=== PATIENT | female | born 1995 | race Caucasian/White ===

== ENCOUNTER 2017-02-10 19:55 | Emergency (ER) | payer SELFPAY ==
[~2017-02-10] VITALS: Ht 165.1 cm; Wt 66.0 kg
[~2017-02-10 19:55] MED LIST: BUTA1CAP57 PO; FERR325T20 PO; IBUP800T PO; INDO50CA PO; OXYC-302 PO; PREN1TAB27 PO; SENN-25 PO
[2017-02-10 20:22] LABS: HEMOGLOBIN 12.5 g/dL (11.7-16.4)
[2017-02-10 20:37] LABS: BLOOD UREA NITROGEN 5 mg/dL (7-18)
[2017-02-10 20:56] LABS: ASPARTATE AMINO TRANSFERASE 17 U/L (15-37)
[2017-02-10 23:51] VITALS: BP 99/55
== END 2017-02-10 23:53 | disposition home or self-care (01) ==
LOC: ED 21:32
DX: O20.0 Threatened abortion (principal)
CPT/HCPCS: 36415; 76801; 80053; 81003; 84702; 85025; 86901

== ENCOUNTER 2017-04-24 10:14 | Emergency (ER) | payer MEDICAID ==
[~2017-04-24] VITALS: Ht 165.1 cm; Wt 68.0 kg
[2017-04-24 10:37] VITALS: BP 112/65
== END 2017-04-24 11:07 | disposition home or self-care (01) ==
LOC: ED 11:00
DX: O9A.212 Injury, poisoning and certain other consequences of external causes complicating pregnancy, second trimester (principal); Z3A.23 23 weeks gestation of pregnancy; S80.02XA Contusion of left knee, initial encounter; V43.02XA Car driver injured in collision with other type car in nontraffic accident, initial encounter; Y93.89 Activity, other specified; Y92.89 Other specified places as the place of occurrence of the external cause; Y99.8 Other external cause status
CPT/HCPCS: 99282; 99283

== ENCOUNTER 2017-04-24 11:14 | Outpatient (CLI) | payer MEDICAID ==
[~2017-04-24] VITALS: Ht 166.4 cm; Wt 68.1 kg
[2017-04-24 11:34] VITALS: BP 91/51
[2017-04-24 13:07] LABS: HIV 1&2 ANTIBODY SCREEN Nonreactive (Nonreactive); HIV-1 p24 ANTIGEN Nonreactive (Nonreactive)
== END 2017-04-24 12:20 | disposition home or self-care (01) ==
LOC: LDOP 11:14
PROVIDERS: ATTEND Obstetrics & Gynecology
DX: O26.892 Other specified pregnancy related conditions, second trimester (principal); O9A.212 Injury, poisoning and certain other consequences of external causes complicating pregnancy, second trimester; R10.9 Unspecified abdominal pain; Z3A.23 23 weeks gestation of pregnancy
CPT/HCPCS: 36415; 59025; 85025; 86592; 86703; 86762; 86850; 86900; 87340; 87899; 99211; G0435; G0463

== ENCOUNTER 2017-04-29 21:10 | Outpatient (CLI) | payer MEDICAID | END 2017-04-29 22:10 | disposition home or self-care (01) | LOC: LDOP 21:10 | PROVIDERS: ATTEND Obstetrics & Gynecology | DX: O26.892 Other specified pregnancy related conditions, second trimester (principal); M54.2 Cervicalgia; M54.9 Dorsalgia, unspecified; Z3A.26 26 weeks gestation of pregnancy | CPT/HCPCS: 59025; 99211; G0463 ==

== ENCOUNTER 2017-04-29 22:18 | Emergency (ER) | payer MEDICAID ==
[~2017-04-29] VITALS: Ht 175.3 cm; Wt 69.2 kg
[2017-04-29 22:23] VITALS: BP 104/55
[2017-04-29] MEDS ORDERED: ONDANSETRON ODT 4 MG ONE (23:19)
[2017-04-29] MEDS ORDERED: METHOCARBAMOL 750 MG TABLET ONE (23:19)
[2017-04-29] MEDS ORDERED: ACETAMINOPHEN 650 MG/20.3 ML UDC ONE (23:19)
[2017-04-29] MEDS ORDERED: ONDANSETRON ODT 4 MG PO ONE (23:30)
[2017-04-29] MEDS ORDERED: METHOCARBAMOL 750 MG TABLET PO ONE (23:30)
[2017-04-29] MEDS ORDERED: ACETAMINOPHEN 650 MG/20.3 ML UDC PO ONE (23:30)
== END 2017-04-29 23:53 | disposition home or self-care (01) ==
LOC: ED 23:47
DX: O9A.212 Injury, poisoning and certain other consequences of external causes complicating pregnancy, second trimester (principal); S16.1XXA Strain of muscle, fascia and tendon at neck level, initial encounter; Z3A.24 24 weeks gestation of pregnancy; V49.9XXA Car occupant (driver) (passenger) injured in unspecified traffic accident, initial encounter; Y93.89 Activity, other specified; Y92.89 Other specified places as the place of occurrence of the external cause; Y99.8 Other external cause status
CPT/HCPCS: 99284; Q0162

== ENCOUNTER → 2017-06-05 | Outpatient (CLI) | payer MEDICAID ==
[~2017-06-05] VITALS: Ht 166.4 cm; Wt 73.2 kg
[~2017-06-05] MED LIST changes: +BETAMETHASONE 6 MG/ML, 5ML IM ONE; +BETAMETHASONE 6 MG/ML, 5ML IM SCH
[2017-06-05 09:58] VITALS: BP 108/52
== END | disposition home or self-care (01) ==
LOC: LDOP 09:11
PROVIDERS: ATTEND Obstetrics & Gynecology
DX: Z23 Encounter for immunization (principal); Z3A.29 29 weeks gestation of pregnancy
CPT/HCPCS: 59025; 96372; 99211; J0702; G0463

== ENCOUNTER 2018-09-04 21:00 | Emergency (ER) | payer MEDICAID ==
[~2018-09-04] VITALS: Ht 165.1 cm; Wt 74.5 kg
[~2018-09-04 21:00] MED LIST changes: -BETAMETHASONE 6 MG/ML, 5ML IM ONE; -BETAMETHASONE 6 MG/ML, 5ML IM SCH; +FERR325T18 PO; -FERR325T20 PO; +IBUP-1223 PO; -IBUP800T PO; -INDO50CA PO; +INDO50CA5 PO
[2018-09-04 21:20] VITALS: BP 116/70
== END 2018-09-04 22:38 | disposition home or self-care (01) ==
LOC: ED 22:32
DX: S80.01XA Contusion of right knee, initial encounter (principal); W01.0XXA Fall on same level from slipping, tripping and stumbling without subsequent striking against object, initial encounter; Y93.89 Activity, other specified; Y99.8 Other external cause status; Y92.410 Unspecified street and highway as the place of occurrence of the external cause
CPT/HCPCS: 99284

== ENCOUNTER 2018-10-18 10:37 | Emergency (ER) | payer MEDICAID ==
[~2018-10-18] VITALS: Ht 165.1 cm; Wt 70.0 kg
[2018-10-18 10:48] VITALS: BP 99/60
[2018-10-18] MEDS ORDERED: ONDANSETRON ODT 4 MG ONE (11:32)
[2018-10-18] MEDS ORDERED: SODIUM CHLORIDE FLUSH 10ML SYR IVF ONE (12:00)
[2018-10-18] MEDS ORDERED: SODIUM CHLORIDE 0.9% 1,000ML IVBOLUS ONE (12:00)
[2018-10-18] MEDS ORDERED: ONDANSETRON ODT 4 MG PO ONE (12:00)
== END 2018-10-18 12:35 | disposition home or self-care (01) ==
LOC: ED 11:33
DX: R11.2 Nausea with vomiting, unspecified (principal); E86.0 Dehydration
CPT/HCPCS: 96360; 99283; J7030; Q0162

== ENCOUNTER 2019-01-05 10:03 | Emergency (ER) | payer MEDICAID ==
[~2019-01-05] VITALS: Ht 165.1 cm; Wt 70.9 kg
[2019-01-05 10:41] LABS: BASOPHILS # (AUTO) 0.02 x10^3/uL (0-0.1); BASOPHILS % (AUTO) 0 % (0-1); EOSINOPHILS # (AUTO) 0.05 x10^3/uL (0-0.4); EOSINOPHILS % (AUTO) 1 % (1-7); LYMPHOCYTES # (AUTO) 1.59 x10^3/uL (1-3.4); LYMPHOCYTES % (AUTO) 24 % (22-44); MD NO; MEAN CORPUSCULAR HEMOGLOBIN 31.3 pg (27.0-34.8); MEAN CORPUSCULAR HGB CONC 33.7 g/dL (32.4-35.8); MEAN CORPUSCULAR VOLUME 92.8 fL (80-100); MEAN PLATELET VOLUME 8.3 fL (7.4-10.4); MONOCYTES # (AUTO) 0.43 x10^3/uL (0.2-0.8); MONOCYTES % (AUTO) 7 % (2-9); NEUTROPHILS # (AUTO) 4.46 x10^3/uL (1.8-6.8); NEUTROPHILS % (AUTO) 68 % (42-75); PLATELET COUNT 328 x10^3/uL (130-400); RED BLOOD COUNT 4.51 x10^6/uL (3.82-5.3); RED CELL DISTRIBUTION WIDTH 13.3 % (9.6-15.2)
--- NOTE | 2019-01-05 10:46 | NUR ---
PT TO ROOM AT THIS TIME
[2019-01-05 10:52] LABS: ALBUMIN 3.6 g/dL (3.4-5.0); ANION GAP 5 mmol/L (5-15); CALCIUM 8.5 mg/dL (8.5-10.1); CHLORIDE 109 mmol/L (98-107); CREATININE 0.69 mg/dL (0.55-1.02)
[2019-01-05 11:04] LABS: MICROSCOPIC AUTO
[2019-01-05 11:09] LABS: CULTURE INDICATED? YES
[2019-01-05 11:44] VITALS: BP 115/89
== END 2019-01-05 12:23 | disposition home or self-care (01) ==
LOC: ED 12:06
DX: N30.90 Cystitis, unspecified without hematuria (principal); Z90.49 Acquired absence of other specified parts of digestive tract
CPT/HCPCS: 36415; 80048; 81001; 81025; 82040; 85025; 87086; 99283

== ENCOUNTER 2019-04-06 14:34 | Emergency (ER) | payer MEDICAID ==
[~2019-04-06] VITALS: Ht 165.1 cm; Wt 67.9 kg
--- NOTE | 2019-04-06 15:10 | NUR ---
ER PA AT BS NOW. PT CALM, FRIEND AT BS.
[2019-04-06 16:00] LABS: BASOPHILS # (AUTO) 0.04 x10^3/uL (0-0.1); BASOPHILS % (AUTO) 1 % (0-1); EOSINOPHILS # (AUTO) 0.12 x10^3/uL (0-0.4); EOSINOPHILS % (AUTO) 2 % (1-7); LYMPHOCYTES # (AUTO) 1.62 x10^3/uL (1-3.4); LYMPHOCYTES % (AUTO) 24 % (22-44); MD NO; MEAN CORPUSCULAR HEMOGLOBIN 30.3 pg (27.0-34.8); MEAN CORPUSCULAR HGB CONC 32.5 g/dL (32.4-35.8); MEAN CORPUSCULAR VOLUME 93.3 fL (80-100); MEAN PLATELET VOLUME 8.5 fL (7.4-10.4); MONOCYTES # (AUTO) 0.53 x10^3/uL (0.2-0.8); MONOCYTES % (AUTO) 8 % (2-9); NEUTROPHILS # (AUTO) 4.42 x10^3/uL (1.8-6.8); NEUTROPHILS % (AUTO) 66 % (42-75); PLATELET COUNT 284 x10^3/uL (130-400); RED BLOOD COUNT 4.45 x10^6/uL (3.82-5.3); RED CELL DISTRIBUTION WIDTH 12.9 % (9.6-15.2)
--- NOTE | 2019-04-06 16:09 | NUR ---
STRAIGHT CATH DONE AND URINE SENT TO LAB. PT TOLERATED WELL. PT UNDERSTANDS POC.
[2019-04-06 16:14] LABS: MICROSCOPIC NOT IND
[2019-04-06 16:17] LABS: CULTURE INDICATED? NO
[2019-04-06 16:49] VITALS: BP 132/79
--- NOTE | 2019-04-06 16:49 | NUR ---
D/C INSTRUCTIONS & F/U APPT RV'WD WITH PT, SHE VERBALIZES UNDERSTANDING. PT TO COME BACK TO ER IN 48H FOR REPEAT HCG. PT AMBULATED OUT OF ED WITH FRIEND WITHOUT DIFFICULTY.
== END 2019-04-06 16:52 | disposition home or self-care (01) ==
LOC: ED 15:32
DX: O20.0 Threatened abortion (principal); Z3A.08 8 weeks gestation of pregnancy; Z90.89 Acquired absence of other organs
CPT/HCPCS: 36415; 76801; 81003; 84702; 85025; 86901; 99284

== ENCOUNTER 2019-04-10 15:55 | Emergency (ER) | payer MEDICAID ==
[~2019-04-10] VITALS: Ht 165.1 cm; Wt 68.4 kg
[2019-04-10 15:57] VITALS: BP 109/74
== END 2019-04-10 17:11 | disposition home or self-care (01) ==
LOC: ED 17:00
DX: O26.891 Other specified pregnancy related conditions, first trimester (principal); S93.491A Sprain of other ligament of right ankle, initial encounter; W01.0XXA Fall on same level from slipping, tripping and stumbling without subsequent striking against object, initial encounter; Y93.89 Activity, other specified; Y92.89 Other specified places as the place of occurrence of the external cause; Y99.8 Other external cause status
CPT/HCPCS: 29515; 99283

== ENCOUNTER 2019-05-31 20:49 | Emergency (ER) | payer MEDICAID ==
[~2019-05-31] VITALS: Ht 165.1 cm; Wt 66.9 kg
[2019-05-31 20:54] VITALS: BP 106/61
== END 2019-05-31 22:32 ==
LOC: ED 22:26
DX: O20.0 Threatened abortion (principal); Z3A.13 13 weeks gestation of pregnancy; Z90.89 Acquired absence of other organs
CPT/HCPCS: 36415; 76801; 80048; 81003; 82040; 84702; 85025; 86850; 86900; 99284

== ENCOUNTER 2019-12-26 17:44 | Emergency (ER) | payer MEDICAID ==
[~2019-12-26] VITALS: Ht 165.1 cm; Wt 75.0 kg
[~2019-12-26 17:44] MED LIST changes: +INDO50CA15 PO; -INDO50CA5 PO
--- NOTE | 2019-12-26 18:33 | NUR ---
PT PRESENTS TO ED WITH VB X3 MONTHS AFTER HAVING CONTROL NEXAPLON IMPLANT PLACED. NOW VB INCREASED WITH CLOTS EVIDENT AND 2 PADS/HR PER PT. PT DENIES PAIN AT THIS TIME. NO URINARY SYMTOMS.
[2019-12-26] MEDS ORDERED: ETON68IM3 IMPLANT (18:36)
--- NOTE | 2019-12-26 18:39 | NUR ---
pt ambulates well to bathroom independently for UA.
--- NOTE | 2019-12-26 19:16 | NUR ---
PT LAYING BACK, USING CELL PHONE. NAD NOTED. AWAITING US.
[2019-12-26 19:27] LABS: BASOPHILS # (AUTO) 0.02 x10^3/uL (0-0.1); BASOPHILS % (AUTO) 0 % (0-1); EOSINOPHILS # (AUTO) 0.08 x10^3/uL (0-0.4); EOSINOPHILS % (AUTO) 2 % (1-7); LYMPHOCYTES # (AUTO) 1.81 x10^3/uL (1-3.4); LYMPHOCYTES % (AUTO) 35 % (22-44); MD NO; MEAN CORPUSCULAR HEMOGLOBIN 31.6 pg (27.0-34.8); MEAN CORPUSCULAR HGB CONC 33.8 g/dL (32.4-35.8); MEAN CORPUSCULAR VOLUME 93.5 fL (80-100); MEAN PLATELET VOLUME 8.5 fL (7.4-10.4); MONOCYTES # (AUTO) 0.47 x10^3/uL (0.2-0.8); MONOCYTES % (AUTO) 9 % (2-9); NEUTROPHILS # (AUTO) 2.86 x10^3/uL (1.8-6.8); NEUTROPHILS % (AUTO) 55 % (42-75); PLATELET COUNT 318 x10^3/uL (130-400); RED BLOOD COUNT 4.62 x10^6/uL (3.82-5.3); RED CELL DISTRIBUTION WIDTH 13.9 % (9.6-15.2)
[2019-12-26 19:34] LABS: ALBUMIN 4.1 g/dL (3.4-5.0); ANION GAP 5 mmol/L (5-15); CALCIUM 8.4 mg/dL (8.5-10.1); CHLORIDE 108 mmol/L (98-107); CREATININE 0.84 mg/dL (0.55-1.02)
--- NOTE | 2019-12-26 20:12 | NUR ---
PT UP FOR RECHECK. NAD NOTED AT THIS TIME.
[2019-12-26 20:42] VITALS: BP 123/66
== END 2019-12-26 20:44 | disposition home or self-care (01) ==
LOC: ED 20:31
DX: N92.0 Excessive and frequent menstruation with regular cycle (principal); N92.1 Excessive and frequent menstruation with irregular cycle
CPT/HCPCS: 36415; 76830; 80048; 82040; 84703; 85025; 99284

== ENCOUNTER 2020-08-25 22:45 | Emergency (ER) | payer MEDICAID ==
[~2020-08-25] VITALS: Ht 167.6 cm; Wt 72.0 kg
[~2020-08-25 22:45] MED LIST changes: +ETON68IM3 IMPLANT
[2020-08-25 22:49] VITALS: BP 107/78
--- NOTE | 2020-08-25 22:49 | NUR ---
NIL X1
--- NOTE | 2020-08-26 00:02 | NUR ---
PA CALLED FOR PT. PT NOT IN LOBBY AT THIS TIME.
--- NOTE | 2020-08-26 00:22 | NUR ---
CALLED FOR PT. PT NOT IN LOBBY.
--- NOTE | 2020-08-26 01:46 | NUR ---
PT APPROACHED STAFF MEMBER INQUIRING HOW LONG UNTIL SHE WOULD BE ROOMED. PRIMARY CARE PEDIATRICIAN EXPLAINED THEY HAD ATTEMPTED TO CALL HER BACK MX TIMES. PT STATED "OH I DIDN'T HEAR YOU, I WAS IN THE FAR BACK". PT IMMEDIATELY ROOMED, ERMJaime HOLLINS NOTIFIED.
--- NOTE | 2020-08-26 01:50 | NUR ---
DR OHLLINS AT BEDSIDE FOR ASSESSMENT
== END 2020-08-26 00:56 | disposition home or self-care (01) ==
LOC: ED 08-26 00:50
DX: S80.02XA Contusion of left knee, initial encounter (principal); X58.XXXA Exposure to other specified factors, initial encounter; Y93.89 Activity, other specified; Y92.89 Other specified places as the place of occurrence of the external cause; Y99.8 Other external cause status
CPT/HCPCS: 29505; 99283

== ENCOUNTER 2020-10-12 20:44 | Emergency (ER) | payer MEDICAID ==
[~2020-10-12] VITALS: Ht 165.1 cm; Wt 71.9 kg
[2020-10-12 21:08] VITALS: BP 104/43
--- NOTE | 2020-10-12 23:42 | NUR ---
[employer] DRIVER: CALLED FOR PT. PT NOT IN LOBBY AT THIS TIME.
--- NOTE | 2020-10-12 23:57 | NUR ---
environmental test technician: pt from lobby to room 1
--- NOTE | 2020-10-12 23:59 | NUR ---
Seo Manager RN: Pt not in lobby when RN attempted to call for pt.
--- NOTE | 2020-10-13 00:30 | NUR ---
pt not in lobby
== END 2020-10-13 00:35 | disposition left against medical advice (07) ==
LOC: ED 10-13 00:29
DX: O46.91 Antepartum hemorrhage, unspecified, first trimester (principal); R10.9 Unspecified abdominal pain; Z3A.01 Less than 8 weeks gestation of pregnancy
CPT/HCPCS: 76801; 99284

== ENCOUNTER 2021-01-23 13:09 | Observation (INO) | payer MEDICAID ==
[~2021-01-23] VITALS: Ht 166.4 cm; Wt 71.8 kg
[~2021-01-23 13:09] MED LIST changes: -OXYC-302 PO; +OXYC1TAB14 PO
[2021-01-23] MEDS ORDERED: TERBUTALINE 1 MG/ML, 1ML IV PRN (14:00)
[2021-01-23] MEDS ORDERED: METRONIDAZOLE PMX 500MG/100ML 100 ML IV ONE (14:00)
[2021-01-23] MEDS ORDERED: INDOMETHACIN 50 MG CAPSULE PO ONE (14:00)
[2021-01-23] MEDS ORDERED: D5%-LACTATED RINGERS 1,000 ML IV SCH (14:00)
[2021-01-23] MEDS ORDERED: TERBUTALINE 1 MG/ML, 1ML IV ONE (14:00)
[2021-01-23 14:46] LABS: BASOPHILS % (AUTO) 1 % (0-1); EOSINOPHILS % (AUTO) 1 % (1-7); LYMPHOCYTES % (AUTO) 22 % (22-44); MEAN CORPUSCULAR HEMOGLOBIN 32.4 pg (27.0-34.8); MEAN CORPUSCULAR HGB CONC 34.1 g/dL (32.4-35.8); MEAN PLATELET VOLUME 8.5 fL (7.4-10.4); MONOCYTES % (AUTO) 6 % (2-9); NEUTROPHILS % (AUTO) 70 % (42-75); PLATELET COUNT 240 x10^3/uL (130-400); RED BLOOD COUNT 3.74 x10^6/uL (3.82-5.3); RED CELL DISTRIBUTION WIDTH 13.6 % (9.6-15.2)
[2021-01-23 14:52] VITALS: BP 92/60
[2021-01-23 14:57] LABS: MD NO
[2021-01-23] MEDS ORDERED: SUCRALFATE 1 GM TABLET PO SCH ×2 (15:00→16:00)
[2021-01-23] MEDS: LACTATED RINGERS 1,000 ML IV SCH ×2 (15:13→16:17)
[2021-01-23] MEDS ORDERED: INDOMETHACIN 25 MG CAPSULE PO SCH (18:00)
== END 2021-01-23 20:50 | disposition home or self-care (01) ==
LOC: LDOP 13:09 → LDIP 16:00
PROVIDERS: ADMIT Obstetrics & Gynecology Maternal & Fetal Medicine; ATTEND Obstetrics & Gynecology Maternal & Fetal Medicine
DX: O34.32 Maternal care for cervical incompetence, second trimester (principal); O26.873 Cervical shortening, third trimester; O09.212 Supervision of pregnancy with history of pre-term labor, second trimester; Z3A.20 20 weeks gestation of pregnancy; Z79.899 Other long term (current) drug therapy
CPT/HCPCS: 36415; 59320; 85025; 86850; 86900; 96361; 96365; 96366; 96375; G0378; J3105; J7120; J7121

== ENCOUNTER 2021-05-10 19:06 | Outpatient (CLI) | payer MEDICAID ==
[~2021-05-10] VITALS: Ht 165.1 cm; Wt 75.0 kg
[2021-05-10 19:52] LABS: MICROSCOPIC INDICATED
[2021-05-10 20:59] VITALS: BP 115/70
== END 2021-05-10 21:53 | disposition home or self-care (01) ==
LOC: LDOP 19:06
PROVIDERS: ATTEND Obstetrics & Gynecology
DX: O26.893 Other specified pregnancy related conditions, third trimester (principal); R10.9 Unspecified abdominal pain; Z3A.36 36 weeks gestation of pregnancy
CPT/HCPCS: 59025; 81001; 87086

== ENCOUNTER 2021-05-11 20:32 | Inpatient (IN) | payer MEDICAID ==
[~2021-05-11] VITALS: Ht 165.1 cm; Wt 75.5 kg
[2021-05-11] MEDS ORDERED: OXYTOCIN 30U/ 0.9% NaCL 500ML 500 ML ONE (22:13)
[2021-05-11] MEDS ORDERED: NEWBORN KIT ONE (22:13)
[2021-05-11] MEDS ORDERED: D5%-LACTATED RINGERS 1,000 ML IV SCH (22:30)
[2021-05-11] MEDS ORDERED: TERBUTALINE 1 MG/ML, 1ML IVPush PRN (22:30)
[2021-05-11] MEDS ORDERED: CALCIUM CARBONATE 500 MG TAB.CHEW PO PRN (22:30)
[2021-05-11] MEDS ORDERED: FENTANYL PF 100 MCG/2ML IVPush PRN (22:30)
[2021-05-11] MEDS ORDERED: TERBUTALINE 1 MG/ML, 1ML SQ PRN (22:30)
[2021-05-11] MEDS ORDERED: ONDANSETRON 2MG/ML, 2ML IVPush PRN (22:30)
[2021-05-11] MEDS ORDERED: OXYTOCIN 30U/ 0.9% NaCL 500ML 500 ML IV ONE (22:30)
[2021-05-11] MEDS ORDERED: METOCLOPRAMIDE 5 MG/ML, 2ML IVPush PRN (22:30)
[2021-05-11 22:42] LABS: BASOPHILS % (AUTO) 1 % (0-1); EOSINOPHILS % (AUTO) 1 % (1-7); LYMPHOCYTES % (AUTO) 19 % (22-44); MEAN CORPUSCULAR HEMOGLOBIN 29.6 pg (27.0-34.8); MEAN CORPUSCULAR HGB CONC 34.1 g/dL (32.4-35.8); MEAN PLATELET VOLUME 8.9 fL (7.4-10.4); MONOCYTES % (AUTO) 6 % (2-9); NEUTROPHILS % (AUTO) 74 % (42-75); PLATELET COUNT 219 x10^3/uL (130-400); RED BLOOD COUNT 3.93 x10^6/uL (3.82-5.3); RED CELL DISTRIBUTION WIDTH 13.7 % (9.6-15.2)
[2021-05-11] MEDS ORDERED: LIDOCAINE 1%, 20ML ONE (22:43)
[2021-05-11] MEDS ORDERED: MISOPROSTOL 200 MCG TABLET ONE (22:43)
[2021-05-11] MEDS: LACTATED RINGERS 1,000 ML IV SCH (22:46)
[2021-05-11] MEDS ORDERED: LACTATED RINGERS 1,000 ML IVBOLUS PRN (23:00)
[2021-05-11] MEDS ORDERED: BUPIVACAINE 0.25% ONE (23:12)
[2021-05-11] MEDS ORDERED: FENTANYL PF 500 MCG, BUPIVACAINE/PF 0.5%, 30ML 62.5 ML in SODIUM CHLORIDE 0.9% 177.5 ML EPIDCONT SCH (23:30)
[2021-05-11] MEDS ORDERED: FENTANYL/BUPIV./NS/PF 250 ML EPIDCONT SCH (23:30)
[2021-05-12] MEDS ORDERED: LACTATED RINGERS 1,000 ML IVBOLUS PRN
[2021-05-12] MEDS ORDERED: EPHEDRINE 50 MG/ML, 1ML IVPush PRN
[2021-05-12] MEDS ORDERED: FENTANYL/BUPIV./NS/PF 250 ML EPIDCONT SCH
[2021-05-12] MEDS ORDERED: OXYTOCIN 30U/ 0.9% NaCL 500ML 500 ML IV PRN (00:30)
[2021-05-12 04:08] VITALS: BP 109/68
[2021-05-12] MEDS: LACTATED RINGERS 1,000 ML IV SCH ×4 (04:24→14:30)
[2021-05-12] MEDS ORDERED: OXYcodone IR 5MG TABLET PO PRN ×2 (07:00)
[2021-05-12] MEDS ORDERED: SIMETHICONE 80 MG CHEW TAB PO PRN (07:00)
[2021-05-12] MEDS ORDERED: OXYTOCIN 30U/ 0.9% NaCL 500ML 500 ML IV SCH (07:00)
[2021-05-12] MEDS ORDERED: ACETAMINOPHEN 325 MG TABLET PO PRN (07:00)
[2021-05-12] MEDS ORDERED: IBUPROFEN 600 MG TABLET PO PRN (07:00)
[2021-05-12] MEDS ORDERED: ONDANSETRON 2MG/ML, 2ML IV PRN (07:00)
[2021-05-12] MEDS ORDERED: MISOPROSTOL 200 MCG TABLET PR PRN (07:00)
[2021-05-12] MEDS: OXYTOCIN 30U/ 0.9% NaCL 500ML 500 ML IV SCH ×2 (08:17→17:00)
[2021-05-12] MEDS: PRENATAL VIT/IRON/FA 1 EACH TABLET PO SCH (09:00)
[2021-05-12 09:50] VITALS: BP 99/65
[2021-05-12 14:05] VITALS: BP 94/60
[2021-05-12 14:45] LABS: BASOPHILS % (AUTO) 0 % (0-1); EOSINOPHILS % (AUTO) 1 % (1-7); LYMPHOCYTES % (AUTO) 7 % (22-44); MEAN CORPUSCULAR HEMOGLOBIN 29.3 pg (27.0-34.8); MEAN CORPUSCULAR HGB CONC 33.5 g/dL (32.4-35.8); MEAN PLATELET VOLUME 9.1 fL (7.4-10.4); MONOCYTES % (AUTO) 7 % (2-9); NEUTROPHILS % (AUTO) 84 % (42-75); PLATELET COUNT 224 x10^3/uL (130-400); RED BLOOD COUNT 3.97 x10^6/uL (3.82-5.3); RED CELL DISTRIBUTION WIDTH 13.8 % (9.6-15.2)
[2021-05-12 21:30] VITALS: BP 99/66
[2021-05-13 00:45] VITALS: BP 96/62
[2021-05-13 05:05] VITALS: BP 96/61
[2021-05-13 08:00] VITALS: BP 95/62
[2021-05-13] MEDS: PRENATAL VIT/IRON/FA 1 EACH TABLET PO SCH (09:00)
[2021-05-13] MEDS: DOCUSATE 100 MG CAPSULE PO PRN (09:00)
[2021-05-13 20:00] VITALS: BP 106/70
[2021-05-14 08:12] VITALS: BP 103/68
[2021-05-14] MEDS: PRENATAL VIT/IRON/FA 1 EACH TABLET PO SCH (08:20)
[2021-05-14] MEDS: DOCUSATE 100 MG CAPSULE PO PRN (08:20)
== END 2021-05-14 13:30 | disposition home or self-care (01) | DRG 805 ==
LOC: LDOP 20:32 → LDIP 22:45 → 2NW 05-12 09:45
PROVIDERS: ADMIT Obstetrics & Gynecology; ATTEND Obstetrics & Gynecology
PROC: 10E0XZZ Delivery of Products of Conception, External Approach (ICD-10-PCS; principal; 2021-05-12)
PROC: 3E0R3BZ Introduction of Anesthetic Agent into Spinal Canal, Percutaneous Approach (ICD-10-PCS; 2021-05-12)
PROC: 00HU33Z Insertion of Infusion Device into Spinal Canal, Percutaneous Approach (ICD-10-PCS; 2021-05-12)
DX: O62.3 Precipitate labor (principal); O34.33 Maternal care for cervical incompetence, third trimester; Z37.0 Single live birth; Z20.822 Contact with and (suspected) exposure to COVID-19; Z3A.36 36 weeks gestation of pregnancy; Z83.3 Family history of diabetes mellitus
CPT/HCPCS: 36415; 85025; 86592; 86762; 86850; 86900; 87340; 87635; 87806; G0378; J3010; G0475; J2590; J7050; J7120

== ENCOUNTER 2021-07-14 20:07 | Emergency (ER) | payer MEDICAID ==
[~2021-07-14] VITALS: Ht 165.1 cm; Wt 71.0 kg
[~2021-07-14 20:07] MED LIST changes: +OXYC1TAB12 PO; -OXYC1TAB14 PO
[2021-07-14 20:12] VITALS: BP 116/77
--- NOTE | 2021-07-14 22:00 | NUR ---
F/U AND D/C INSTRUCTIONS GIVEN TO PT AND SHE V/U. PT AMBULATED TO DISCHARGE.
== END 2021-07-14 22:03 | disposition home or self-care (01) ==
LOC: ED 21:57
DX: U07.1 COVID-19 (principal); J06.9 Acute upper respiratory infection, unspecified; B34.9 Viral infection, unspecified; M79.10 Myalgia, unspecified site
CPT/HCPCS: 99283; U0003; U0005